=== PATIENT | male | born 1975 | race Hispanic/Latino ===

== ENCOUNTER 2018-03-06 20:54 | Observation (INO) | payer OTHER ==
[~2018-03-06] VITALS: Ht 170.2 cm; Wt 141.1 kg
[~2018-03-06 20:54] MED LIST: ASPI-1005 PO; METO25 PO; PRAS10TA6 PO; SIMV40TA59 PO
[2018-03-06] MEDS ORDERED: ASPIRIN 325 MG TABLET ONE (20:58)
[2018-03-06 21:08] LABS: BASOPHILS % (AUTO) 0.6 % (0.0-5.0); EOSINOPHILS % (AUTO) 3.1 % (0.0-8.0); LYMPHOCYTES % (AUTO) 34.3 % (21.0-51.0); MEAN CORPUSCULAR HEMOGLOBIN 26.4 pg (27.0-33.0); MEAN CORPUSCULAR HGB CONC 34.1 g/dL (32.0-36.0); MEAN CORPUSCULAR VOLUME 77.6 fL (79-99); MONOCYTES % (AUTO) 8.4 % (3.0-13.0); NEUTROPHILS % (AUTO) 53.6 % (40.0-77.0); NUCLEATED RED BLOOD CELLS 0.1 % (0.0-0.19); PLATELET COUNT (AUTO) 468 K/uL (130-400); RED BLOOD CELL COUNT(AUTO) 5.02 MIL/uL (4.50-6.20); RED CELL DISTRIBUTION WIDTH 14.9 % (11.0-15.5); WHITE BLOOD COUNT (AUTO) 10.8 K/uL (4.8-10.8)
[2018-03-06 21:20] LABS: INR 0.95 (0.85-1.15); PARTIAL THROMBOPLASTIN TIME 25.9 SEC (26.3-35.5)
[2018-03-06 21:28] LABS: CREATININE 1.1 mg/dL (0.5-1.5); POTASSIUM 3.7 mmol/L (3.5-5.1)
[2018-03-06] MEDS ORDERED: NITROGLYCERIN 1GM/1 INCH PACKET TD ONE (21:37)
[2018-03-06 21:40] LABS: ALBUMIN 3.6 g/dL (3.5-5.0); BILIRUBIN,TOTAL 0.2 mg/dL (0.2-1.0); CREATINE KINASE MB 1.2 ng/mL (0.5-3.6); TOTAL PROTEIN, SERUM 7.3 g/dL (6.0-8.3)
[2018-03-07] MEDS ORDERED: ACETAMINOPHEN 325 MG TAB ONE ×2 (02:03→09:08)
[2018-03-07] MEDS ORDERED: DEXTROSE 50%-WATER 50 ML DISP.SYRIN IV PRN (03:15)
[2018-03-07] MEDS ORDERED: NITROGLYCERIN 0.4 MG SL TAB SL PRN (03:15)
[2018-03-07] MEDS ORDERED: GLUCAGON 1MG KIT 1 MG ML IM PRN (03:15)
[2018-03-07] MEDS: INSULIN R PO SS1 SQ SCH ×2 (07:30→11:30)
[2018-03-07] MEDS ORDERED: LABETALOL HCL 100 MG TABLET PO SCH (09:00)
[2018-03-07] MEDS ORDERED: ENOXAPARIN SODIUM 40 MG/0.4 ML SYRINGE SQ SCH (09:00)
[2018-03-07] MEDS ORDERED: ENOXAPARIN SODIUM 100 MG/1 ML SQ SCH (09:00)
[2018-03-07] MEDS ORDERED: ASPIRIN 81MG TAB.CHEW PO SCH (09:00)
[2018-03-07] MEDS ORDERED: ASPIRIN 81MG TAB.CHEW ONE (09:08)
[2018-03-07] MEDS ORDERED: AMLO5TAB2 PO (09:23)
[2018-03-07] MEDS ORDERED: LISI-613 PO (09:23)
[2018-03-07 09:30] VITALS: BP 120/68
[2018-03-07] MEDS ORDERED: ENOXAPARIN SODIUM 120 MG/0.8ML SQ SCH (10:15)
[2018-03-07 12:00] VITALS: BP 121/70
[2018-03-07] MEDS ORDERED: METOPROLOL TARTRATE 25 MG TAB PO SCH (21:00)
[2018-03-07] MEDS ORDERED: ATORVASTATIN CALCIUM 20 MG TABLET PO SCH ×2 (21:00)
[2018-03-08] MEDS ORDERED: ASPIRIN 81MG TAB.CHEW PO SCH (09:00)
[2018-03-08] MEDS ORDERED: PRASUGREL HCL 10 MG TABLET PO SCH (09:00)
[2018-03-08] MEDS ORDERED: LISINOPRIL 20 MG TABLET PO SCH (09:00)
[2018-03-08] MEDS ORDERED: AMLODIPINE BESYLATE 5 MG TAB PO SCH (09:00)
== END 2018-03-07 14:40 | disposition home or self-care (01) ==
LOC: EDH 20:54 → EDHIP 03-07 01:40 → 4CH 03-07 10:23
PROVIDERS: ADMIT Internal Medicine; ATTEND Internal Medicine
DX: I16.9 Hypertensive crisis, unspecified (principal); E11.9 Type 2 diabetes mellitus without complications; E66.01 Morbid (severe) obesity due to excess calories; E78.5 Hyperlipidemia, unspecified; G47.33 Obstructive sleep apnea (adult) (pediatric); I10 Essential (primary) hypertension; I25.10 Atherosclerotic heart disease of native coronary artery without angina pectoris; Z95.5 Presence of coronary angioplasty implant and graft; Z98.84 Bariatric surgery status
CPT/HCPCS: 36415; 71045; 80053; 82550; 82553; 82948 ×2; 83874; 84484 ×2; 85025; 85610; 85730; 93005 ×2; 99285; G0378 ×13; J1650